=== PATIENT | male | born 1965 | race Caucasian/White ===

== ENCOUNTER → 2021-12-04 | Emergency (ER) | payer OTHER ==
[~2021-12-04] VITALS: Ht 172.7 cm; Wt 75.7 kg
[~2021-12-04] MED LIST: IBUP-1955 PO
--- NOTE | 2021-12-04 13:06 | NUR ---
ER BED 7 BIB SELF C/O L ARM NUMBNESS AND COLDNESS STARTED 1 1/2HR [employer]. FACE SYMMETRICAL. NO DRIFT OF EXTREMITIES. NO CHOKING WHEN SWALLOWING WATER.
[2021-12-04 13:49] LABS: BASOPHILS % (AUTO) 0.8 % (0.0-2.0); EOSINOPHILS % (AUTO) 1.3 % (0.0-6.0); HEMATOCRIT 46 % (39-51); HEMOGLOBIN 15.8 g/dL (13.5-17.5); LYMPHOCYTES # (AUTO) 1.2 K/uL (0.8-4.8); LYMPHOCYTES % (AUTO) 25.2 % (20.0-44.0); MEAN CORPUSCULAR HGB CONC 34 g/dl (31.0-36.0); MEAN CORPUSCULAR VOLUME 91 fL (80-96); MONOCYTES # (AUTO) 0.4 K/uL (0.1-1.30); NEUTROPHILS # (AUTO) 2.9 K/uL (1.8-8.9); NEUTROPHILS % (AUTO) 63.7 % (43.0-81.0); PLATELET COUNT (AUTO) 219 K/uL (150-450); WHITE BLOOD COUNT (AUTO) 4.6 K/uL (4.3-11.0)
[2021-12-04 13:55] LABS: CALCIUM, SERUM 9.5 mg/dL (8.5-10.1)
[2021-12-04 14:26] VITALS: BP 127/74
--- NOTE | 2021-12-04 14:26 | NUR ---
Patient discharged to home in stable condition. Written and verbal after care instructions given. Patient verbalizes understanding of instruction.
== END | disposition home or self-care (01) ==
LOC: ER 12:50
DX: R20.2 Paresthesia of skin (principal); J45.909 Unspecified asthma, uncomplicated; Z60.2 Problems related to living alone
CPT/HCPCS: 36415; 80048-TC; 85025-TC

== ENCOUNTER 2022-11-05 15:51 | Emergency (ER) | payer OTHER ==
[~2022-11-05] VITALS: Ht 172.7 cm; Wt 75.3 kg
--- NOTE | 2022-11-05 16:00 | NUR ---
BIBS FOR RIGHT SHOULDER INJURY. A/O X 3, ABLE TO MAKE NEEDS KNOWN, TOLERATING WELL ON ROOM AIR.
--- NOTE | 2022-11-05 19:36 | NUR ---
Patient discharged to home in stable condition. Written and verbal after care instructions given. Patient verbalizes understanding of instruction.
[2022-11-05 19:37] VITALS: BP 123/62
== END 2022-11-05 19:37 | disposition home or self-care (01) ==
LOC: ER 16:03
DX: M25.511 Pain in right shoulder (principal); J45.909 Unspecified asthma, uncomplicated; Z60.2 Problems related to living alone
CPT/HCPCS: 71045-TC; 73030-TC